=== PATIENT | male | born 1970 | race Caucasian/White ===

== ENCOUNTER 2019-03-10 23:00 | Emergency (ER) | payer OTHER, MEDICAID ==
[2019-03-10] MEDS ORDERED: Multivitamin Inj 10 ML, Thiamine HCL 100 MG, Magnesium Sulfate 2 GM, Folic Acid 1 MG in... IV ONE (23:49)
--- NOTE | 2019-03-10 23:56 | ED Physician Chart ---
ED Chief Complaint/HPI - Patient Information Date Seen:: 03/10/19 Time Seen:: 23:45 Chief Complaint:: epigastric pain History of Present Illness:: Patient complains of epigastric pain for 3 days. For the last 3 days he's been drinking 2 pints of vodka per day. No vomiting or diarrhea. Allergies:: Allergies Allergy/AdvReac Type Severity Reaction Status Date / Time morphine Allergy Verified 03/10/19 23:13 Vitals:: Vital Signs - 8 hr 03/10/19 23:05 Temp 98.1 F HR 104 RR 20 BP 162/113 O2 Sat % 97 Historian:: Patient, Family Member Review:: Nurse's Note Reviewed ED Review of Systems - Review of Systems General/Constitutional: No fever, No chills, No weight loss, No weakness, No diaphoresis, No edema, No loss of appetite Skin: No skin lesions, No rash, No bruising Head: No headache, No light-headedness Eyes: No loss of vision, No pain, No diplopia ENT: No earache, No nasal drainage, No sore throat, No tinnitus Neck: No neck pain, No swelling, No thyromegaly, No stiffness, No mass noted Cardio Vascular: No chest pain, No palpitations, No PND, No orthopnea, No edema Pulmonary: No SOB, No cough, No sputum, No wheezing GI: Pain G/U: No dysuria, No frequency, No hematuria Musculoskeletal: No bone or joint pain, No back pain, No muscle pain Endocrine: No polyuria, No polydipsia Psychiatric: No prior psych history, No depression, No anxiety, No suicidal ideation Hematopoietic: No bruising, No lymphadenopathy Allergic/Immuno: No urticaria, No angioedema Neurological: No syncope, No focal symptoms, No weakness, No paresthesia, No headache, No seizure, No dizziness, No confusion, No vertigo ED Past Medical History - Past Medical History Past Medical History: DM, Other (history of alcoholism) Family History: HTN Social History: Non Smoker, Alcohol Surgical History: other (colostomy and colostomy reversal; tracheostomy) Psychiatricy History: None Medication: Reviewed Family Medical History - Family Member Mother History Unknown: Yes ED Physical Exam - Physical Examination General/Constitutional: Awake, Well-developed, well-nourished, Alert, GCS 15 Other Gen/Cons comments:: Mild to moderate distress Head: Atraumatic Eyes: Lids, conjuctiva normal, PERRL, EOMI Skin: Nl inspection, No rash, No skin lesions, No ecchymosis, Well hydrated, No lymphadenopathy ENMT: External ears, nose nl, Nasal exam nl, Lips, teeth, gums nl Neck: Nontender, Full ROM w/o pain, No JVD, No nuchal rigidity, No bruit, No mass, No stridor Respiratory: Nl effort/Exclusion, Clear to Auscultation, No Wheeze/Rhonchi/Rales Cardio Vascular: RRR, No murmur, gallop, rubs, NL S1 S2 GI: No organomegaly, No hernia, Normal BS's, Nondistended, No mass/bruits Other GI comments:: Diffuse abdominal tenderness : No CVA tenderness Neuro/Psych: Alert/oriented, No focal deficits Misc: No paraspinal tenderness ED Labs/Radiology/EKG Results - Lab Results Results: Laboratory Results WBC 5.3 Th/cmm (4.8-10.8) 03/10/19 00:05 RBC 5.28 Mil/cmm (4.30-5.70) 03/10/19 00:05 Hgb 15.9 gm/dL (12-16) 03/10/19 00:05 Hct 47.3 % (41.0-60) 03/10/19 00:05 MCV 89.5 fl (80-99) 03/10/19 00:05 MCH 30.1 pg (26.0-30.0) H 03/10/19 00:05 MCHC Differential 33.6 pg (28.0-36.0) 03/10/19 00:05 RDW 14.0 % (11.5-20.0) 03/10/19 00:05 Plt Count 160 Th/cmm (150-400) 03/10/19 00:05 MPV 6.8 fl 03/10/19 00:05 Neutrophils % 38.7 % (40.0-80.0) L 03/10/19 00:05 Lymphocytes % 52.6 % (20.0-50.0) H 03/10/19 00:05 Monocytes % 6.9 % (2.0-10.0) 03/10/19 00:05 Eosinophils % 0.5 % (0.0-5.0) 03/10/19 00:05 Basophils % 1.3 % (0.0-2.0) 03/10/19 00:05 Sodium 141 mEq/L (136-145) 03/10/19 00:05 Potassium 4.1 mEq/L (3.5-5.1) 03/10/19 00:05 Chloride 99 mEq/L (98-107) 03/10/19 00:05 Carbon Dioxide 24.9 mEq/L (21.0-31.0) 03/10/19 00:05 Anion Gap 21.2 (7.0-16.0) H 03/10/19 00:05 BUN 14 mg/dL (7-25) 03/10/19 00:05 Creatinine 0.9 mg/dL (0.7-1.3) 03/10/19 00:05 Est GFR ( Amer) > 60.0 ml/min (>90) 03/10/19 00:05 Est GFR (Non-Af Amer) > 60.0 ml/min 03/10/19 00:05 BUN/Creatinine Ratio 15.6 03/10/19 00:05 Glucose 171 mg/dL (70-105) H 03/10/19 00:05 Calcium 10.4 mg/dL (8.6-10.3) H 03/10/19 00:05 Magnesium 1.5 mg/dL (1.9-2.7) L 03/10/19 00:05 Lipase 20 U/L (11-82) 03/10/19 00:05 Ethyl Alcohol 361 mg/dL (0-10) H 03/10/19 00:05 ED Assessment - Assessment General Assessment: At 0212 patient resting comfortably. He does not appear to have acute pancreatitis since his lipase is only 20. CAT scan showed calcifications of the pancreas compatible with chronic or recurrent pancreatitis. With the patient currently drinking 2 pints of vodka a day he would probably not do well if discharged. Patient has hypomagnesemia which should have been at least partially corrected with a banana bag ED Septic Shock - . Is Septic Shock (SBP<90, OR Lactate>4 mmol\L) present?: No - <6hrs of presentation: Vital Signs: Vital Signs - 8 hr 03/10/19 23:05 Temp 98.1 F HR 104 RR 20 BP 162/113 O2 Sat % 97 ED Reassessment (Disposition) - Reassessment Reassessment:: At about 0230 patient stated he wanted to leave although my plan was to admit the patient. I told him that if he continues to drink alcohol like he has been he will most likely have a very bad outcome. Patient appeared normally alert during the conversation. His speech was not slurred. Patient will be allowed to sign out AGAINST MEDICAL ADVICE. His is here to provide transportation home. Reassessment Condition:: Improved - Diagnosis Diagnosis:: Acute alcohol intoxication; acute and chronic alcohol abuse; hypomagnesemia; hyperglycemia; diabetes - Patient Disposition Discharge/Transfer:: Against Medical Advice Condition at Disposition:: Stable, Improved
[2019-03-11 00:15] LABS: MEAN CELL VOLUME 89.5 fl (80-99); MONOCYTE ABSOLUTE 0.4 Th/cmm (0.3-1.0)
[2019-03-11 00:18] LABS: % BASOPHILS 1.3 % (0.0-2.0); % EOSINOPHILS 0.5 % (0.0-5.0); % LYMPHOCYTES 52.6 % (20.0-50.0); % MONOCYTES 6.9 % (2.0-10.0); % NEUTROPHILS 38.7 % (40.0-80.0); BASOPHILE ABSOLUTE 0.1 Th/cumm (0-0.2); HEMATOCRIT 47.3 % (41.0-60); HEMOGLOBIN 15.9 gm/dL (12-16); LYMPHOCYTE ABSOLUTE 2.7 Th/cmm (1.5-3.0); MEAN CORPUSCULAR HEMOGLOBIN 30.1 pg (26.0-30.0); MEAN CORPUSCULAR HGB CONC 33.6 pg (28.0-36.0); MEAN PLATELET VOLUME 6.8 fl; NEUTROPHILE ABSOLUTE 2.1 Th/cmm (1.8-8.0); PLATELET COUNT 160 Th/cmm (150-400); RED BLOOD COUNT 5.28 Mil/cmm (4.30-5.70); WHITE BLOOD COUNT 5.3 Th/cmm (4.8-10.8)
[2019-03-11] MEDS ORDERED: HYDROmorphone 1 mg/mL 1mL Syr IVP STA (00:18)
[2019-03-11] MEDS ORDERED: HYDROmorphone 1 mg/mL 1mL Syr ONE (00:24)
[2019-03-11] MEDS ORDERED: Multivitamin Inj 10 mL Vial IV ONE (00:26)
[2019-03-11 00:28] LABS: ANION GAP 21.2 (7.0-16.0); BUN - UREA NITROGEN 14 mg/dL (7-25); CALCIUM SERUM 10.4 mg/dL (8.6-10.3); CARBON DIOXIDE 24.9 mEq/L (21.0-31.0); CHLORIDE 99 mEq/L (98-107); CREATININE - SERUM 0.9 mg/dL (0.7-1.3); GFR AFRICAN-AMERICAN > 60.0 ml/min (>90); GFR NON AFRICAN-AMERICAN > 60.0 ml/min; GLUCOSE 171 mg/dL (70-105); LIPASE 20 U/L (11-82); MAGNESIUM 1.5 mg/dL (1.9-2.7); POTASSIUM SERUM 4.1 mEq/L (3.5-5.1); SODIUM SERUM 141 mEq/L (136-145)
[2019-03-11] MEDS ORDERED: Thiamine 100 mg/mL 2mL Vial ONE (00:35)
[2019-03-11] MEDS ORDERED: Magnesium Sulfate 1 gm/2 mL 2mL Vial IV ONE (00:38)
[2019-03-11] MEDS ORDERED: Maalox 30 mL Cup PO ONE (01:08)
[2019-03-11] MEDS ORDERED: Maalox 30 mL Cup ONE (01:11)
--- NOTE | 2019-03-11 08:57 | Diagnostic Imaging Report ---
CT scan abdomen and pelvis without intravenous contrast HISTORY: Pain, alcoholism Total DLP equals 349 CTDI equals 7.0 Axial sections were obtained from the xiphoid process down to the pubic symphysis. The liver exhibits a homogeneous parenchyma. No focal lesions. The spleen is somewhat generous in size. Numerous small calcifications noted within the head of the pancreas and the proximal body. Findings consistent with changes of chronic pancreatitis. Multiple gallstones are seen. No focal renal lesions. Surgical changes noted within the right lower quadrant of the abdomen. There is suggestion of approximately 2.5 cm defect within the right anterior abdominal wall associated with a hernia which contains fluid-filled bowel. Surgical changes also noted within the left lower quadrant of the abdomen. The exam of the pelvis demonstrates a distended urinary bladder. Moderately distended stool-filled large bowel noted. IMPRESSION: 1. Cholelithiasis 2. Findings consistent with changes of chronic pancreatitis 3. 1.0 mm nonobstructing right renal calculus 4. Surgical changes right lower abdomen and left lower abdomen. 5. Small defect within the right anterior abdominal wall associated with a ventral hernia which contains fluid-filled bowel. 6. Distended stool-filled large bowel 7. Moderately distended urinary bladder
== END 2019-03-11 04:50 | disposition left against medical advice (07) ==
LOC: ER 23:00
DX: F10.129 Alcohol abuse with intoxication, unspecified (principal); E11.65 Type 2 diabetes mellitus with hyperglycemia; E83.42 Hypomagnesemia; R10.84 Generalized abdominal pain; Z88.5 Allergy status to narcotic agent
CPT/HCPCS: 99284; 96365; 96375; 36415; 85025; 80320; 83690; 83735; 80048; 74176; J3411 ×2; J1170; J3475; J7030; X6226; X6598